=== PATIENT | female | born 1945 | race Asian ===

== ENCOUNTER 2021-07-24 12:21 | Observation (INO) | payer MEDICARE, MEDICAID ==
[~2021-07-24] VITALS: Ht 155 cm; Wt 61.0 kg
[2021-07-24] MEDS ORDERED: ONDANSETRON 4 MG/2 ML (SDV) Z0FRAN ONE (12:37)
--- NOTE | 2021-07-24 12:45 | ED Cardiac General ---
History of Present Illness General Stated Complaint: SYNCOPE Source: patient Exam Limitations: no limitations (OLYA LEON APRN) History of Present Illness Date Seen by Provider: Jul 24, 2021 Time Seen by Provider: 12:34 Initial Comments This is a 76-year-old female who presented to the ER via [facility] with syncopal episode and hypotension. States that she was at [employer] and when she went to stand up she passed out, had blurred vision, and sweating. Family thought that this might be to her blood sugar so they gave her some sugar water. Upon EMS arrival she is awake and alert, was assisted to EMS cot. Her initial blood pressure was systolic of 80's. Was given 500ml normal saline bolus in rou te, had about 300ml and at time of arrival. Daughter is present and interpreting at this time as patient does not speak Tajik. She is denying any pain. No recent illness, fever, chills, nausea, vomiting, abdominal pain. States that she was fine prior to incident. Had both Pfizer [employer]oon[employer] vaccines. Family states she stays home and avoids going out d/t COVID. This was her first outing in several months. Has lived in [place] for past seven years. No recent travel. No tobacco, alcohol, illicit drug use. (OLYA LEON APRN) Allergies and Home Medications Allergies Coded Allergies: No Known Drug Allergies (Unverified , 07/24/21) Patient Home Medication List Home Medication List Reviewed: Yes (OLYA LEON APRN) No Active Prescriptions or Reported Meds Review of Systems Review of Systems Constitutional: no symptoms reported EENTM: No Symptoms Reported Respiratory: No Symptoms Reported Cardiovascular: No Symptoms Reported Gastrointestinal: Denies Abdominal Pain; Nausea, Vomiting Genitourinary: No Symptoms Reported Musculoskeletal: no symptoms reported Skin: no symptoms reported Psychiatric/Neurological: No Symptoms Reported Endocrine: No Symptoms Reported Hematologic/Lymphatic: No Symptoms Reported (OLYA LEON APRN) Physical Exam Vital Signs Vital Signs - First Documented 07/24/21 12:25 Temp 35.8 Pulse 60 Resp 20 B/P (MAP) 62/41 (48) Pulse Ox 100 O2 Delivery Nasal Cannula O2 Flow Rate 2.00 (JOSE MIRANDA MD) Vital Signs Capillary Refill : (OLYA LEON APRN) Height, Weight, BMI Height: '" Weight: lbs. oz. kg; BMI Method: General Appearance: No Apparent Distress, WD/WN HEENT: PERRL/EOMI, TMs Normal, Normal ENT Inspection, Pharynx Normal, Moist Mucous Membranes Neck: Full Range of Motion, Normal Inspection, Non Tender, Supple Respiratory: Lungs Clear, No Accessory Muscle Use, No Respiratory Distress, Decreased Breath Sounds (bilateral bases ) Cardiovascular: Regular Rate, Rhythm, No Edema, No Gallop, Normal Peripheral Pulses Gastrointestinal: Normal Bowel Sounds, No Pulsatile Mass, Non Tender, Soft Extremity: Normal Capillary Refill, Normal Inspection, Normal Range of Motion Neurologic/Psychiatric: Alert, Oriented x3, No Motor/Sensory Deficits, Normal Mood/Affect Skin: Normal Color, Warm/Dry (OLYA LEON APRN) Focused Exam Lactate Level 07/24/21 12:45: Lactic Acid Level 3.57*H 07/24/21 15:14: Lactic Acid Level 2.05*H (JOSE MIRANDA MD) Lactic Acid Level Laboratory Tests Test 07/24/21 12:45 07/24/21 15:14 Lactic Acid Level 3.57 MMOL/L (0.50-2.00) *H 2.05 MMOL/L (0.50-2.00) *H (JOSE MIRANDA MD) Progress/Results/Core Measures Results/Orders Lab Results Laboratory Tests Test 07/24/21 12:39 07/24/21 12:43 07/24/21 12:45 07/24/21 14:00 Range/Units White Blood Count 5.1 4.3-11.0 10^3/uL Red Blood Count 2.91 L 3.80-5.11 10^6/uL Hemoglobin 9.7 L 11.5-16.0 g/dL Hematocrit 29 L 35-52 % Mean Corpuscular Volume 101 H 80-99 fL Mean Corpuscular Hemoglobin 33 25-34 pg Mean Corpuscular Hemoglobin Concent 33 32-36 g/dL Red Cell Distribution Width 13.7 10.0-14.5 % Platelet Count 121 L 130-400 10^3/uL Mean Platelet Volume 10.7 9.0-12.2 fL Immature Granulocyte % (Auto) 0 % Neutrophils (%) (Auto) 67 42-75 % Lymphocytes (%) (Auto) 21 12-44 % Monocytes (%) (Auto) 10 0-12 % Eosinophils (%) (Auto) 2 0-10 % Basophils (%) (Auto) 0 0-10 % Neutrophils # (Auto) 3.4 1.8-7.8 10^3/uL Lymphocytes # (Auto) 1.0 1.0-4.0 10^3/uL Monocytes # (Auto) 0.5 0.0-1.0 10^3/uL Eosinophils # (Auto) 0.1 0.0-0.3 10^3/uL Basophils # (Auto) 0.0 0.0-0.1 10^3/uL Immature Granulocyte # (Auto) 0.0 0.0-0.1 10^3/uL Percent Immature Platelet Fraction 4.5 0.0-7.6 % Prothrombin Time 18.2 H 12.2-14.7 SEC INR Comment 1.5 H 0.8-1.4 Activated Partial Thromboplast Time 34 24-35 SEC Sodium Level 139 135-145 MMOL/L Potassium Level 3.8 3.6-5.0 MMOL/L Chloride Level 104 98-107 MMOL/L Carbon Dioxide Level 21 21-32 MMOL/L Anion Gap 14 5-14 MMOL/L Blood Urea Nitrogen 11 7-18 MG/DL Creatinine 0.86 0.60-1.30 MG/DL Estimat Glomerular Filtration Rate 64 BUN/Creatinine Ratio 13 Glucose Level 211 H 70-105 MG/DL Calcium Level 9.0 8.5-10.1 MG/DL Corrected Calcium 9.4 8.5-10.1 MG/DL Magnesium Level 1.8 1.6-2.4 MG/DL Total Bilirubin 0.7 0.1-1.0 MG/DL Aspartate Amino Transf (AST/SGOT) 20 5-34 U/L Alanine Aminotransferase (ALT/SGPT) 15 0-55 U/L Alkaline Phosphatase 72 40-136 U/L Myoglobin 88.4 10.0-92.0 NG/ML Troponin I < 0.028 <0.028 NG/ML C-Reactive Protein High Sensitivity 0.15 0.00-0.50 MG/DL B-Type Natriuretic Peptide 235.5 H <100.0 PG/ML Total Protein 6.5 6.4-8.2 GM/DL Albumin 3.5 3.2-4.5 GM/DL Procalcitonin 0.04 <0.10 NG/ML Urine Color YELLOW Urine Clarity CLEAR Urine pH 7.5 5-9 Urine Specific Moran 1.010 L 1.016-1.022 Urine Protein NEGATIVE NEGATIVE Urine Glucose (UA) NEGATIVE NEGATIVE Urine Ketones NEGATIVE NEGATIVE Urine Nitrite NEGATIVE NEGATIVE Urine Bilirubin NEGATIVE NEGATIVE Urine Urobilinogen 0.2 < = 1.0 MG/DL Urine Leukocyte Esterase NEGATIVE NEGATIVE Urine RBC (Auto) NEGATIVE NEGATIVE Urine RBC NONE /HPF Urine WBC NONE /HPF Urine Crystals NONE /LPF Urine Bacteria NEGATIVE /HPF Urine Casts NONE /LPF Urine Mucus NEGATIVE /LPF Urine Culture Indicated CULTURE PENDING Lactic Acid Level 3.57 *H 0.50-2.00 MMOL/L SARS-CoV-2 RNA (RT-PCR) Not Detected Not Detecte Test 07/24/21 15:14 Range/Units Lactic Acid Level 2.05 *H 0.50-2.00 MMOL/L Troponin I < 0.028 <0.028 NG/ML (JOSE MIRANDA MD) Micro Results Microbiology 07/24/21 Blood Culture - Preliminary, Resulted No growth 07/24/21 Blood Culture - Preliminary, Resulted No growth 07/24/21 Urine Culture - Preliminary, Resulted Probable Enterococcus Species (JOSE MIRANDA MD) Vital Signs/I&O 07/24/21 07/24/21 12:25 12:30 Temp 35.8 Pulse 60 Resp 20 B/P (MAP) 62/41 (48) Pulse Ox 100 100 O2 Delivery Nasal Cannula Nasal Cannula O2 Flow Rate 2.00 2.00 (JOSE MIRANDA MD) Progress Progress Note : Progress Note Family states this patient was out for a family gathering for her birthday celebration today. She was fine prior to incident occurring. States that she does take Metformin intermittently and was told by her primary care doctor to go ahead and take today as they planned on having a heavy carb dinner. She took her Metformin this morning. Upon arrival initiated liter of IV fluids and completed remaining 200ml of her initial 500ml bolus per EMS. She began vomiting and was given Zofran 8 mg IV push. Initial EKG neg for ST elevation. Paced rhythm. Initiated cardiac and sepsis workup. Case reviewed with Dr. Harrington, will admit observation, provide IVF, and repeat labs in am. Plan reviewed with patient and family. They are agreeable with plan. (OLYA LEON APRN) Initial ECG Impression Date: Jul 24, 2021 Initial ECG Impression Time: 12:34 Initial ECG Rate: 76 Initial ECG Intervals Atrial-paced, MA-280, QTc-521, no axis deviation. Initial ECG Comparisson: No Previous ECG Available (OLYA LEON APRN) Diagnostic Imaging Diagonstic Imaging: Xray Comments [facility] [place] [place] [facility] [id number] PT STATUS: REG ER : 1945 PHYSICIAN: OLYA LEON APRN ADMIT DATE: 07/24/21/ER Signed Date of Exam:07/24/21 CHEST 1 VIEW, AP/PA ONLY EXAMINATION: Chest 1 view HISTORY: Chest pain COMPARISON: None available. FINDINGS: Heart size is mildly enlarged. Left-sided cardiac device is present. There are low lung volumes with mild patchy interstitial opacities within both lungs. No pleural effusion or pneumothorax. The osseous structures are intact. IMPRESSION: 1. Low lung volumes with patchy interstitial opacities throughout the lungs which can be seen with pulmonary edema or atypical infection. Dictated by: Dictated on workstation # [id number] Dict: 07/24/21 1340 Trans: 07/24/21 1406 CVB [id number] Interpreted by: MEME FRANZ DO Electronically signed by: MEME FRANZ DO 07/24/211405 Reviewed: Reviewed by Me Comments [facility] [place], [place] [facility] REC#: [id number] PT STATUS: REG ER : 1945 PHYSICIAN: OLYA LEON APRN ADMIT DATE: 07/24/21/ER Signed Date of Exam:07/24/21 CT ABDOMEN/PELVIS W EXAMINATION: CT abdomen and pelvis with intravenous contrast. TECHNIQUE: Multiple contiguous axial images were obtained through the abdomen and pelvis after the uneventful administration of intravenous contrast. All CT scans use one or more of the following dose optimizing techniques: automated exposure control, MA and/or KvP adjustment based on patient size and exam type or iterative reconstruction. HISTORY: Vomiting, abdominal pain, hypotension COMPARISON: None available. FINDINGS: Lung bases: Patchy groundglass opacities are seen within the lung bases. Trace bilateral pleural effusions. Solid organs: The liver is normal without focal lesion. The gallbladder is normal. There is no biliary ductal dilation. Pancreas is normal. There are innumerable hypoattenuating lesions seen throughout the spleen. Adrenal glands are normal. The kidneys are normal without hydronephrosis. Bowel: The stomach and small bowel are normal without obstruction. There is a moderate amount of stool seen throughout the colon. No findings of acute appendicitis. Peritoneum: There is mild abdominal and pelvic ascites. No suspicious lymphadenopathy. Vasculature: Calcification of the aorta without aneurysm. Musculoskeletal: Degenerative changes of the spine without suspicious osseous lesion or compression fracture. Pelvis: The uterus and adnexa are normal. A Garcia catheter is present within the urinary bladder. IMPRESSION: 1. No acute abnormality in the abdomen or pelvis. 2. Innumerable indeterminate hypoattenuating lesions seen throughout the spleen. These are indeterminate but differential consideration includes infectious process, sarcoidosis, or neoplastic process such as lymphoma or metastases. 3. Patchy groundglass opacities in the lung bases which can be seen with atypical infection. 4. Mild ascites. Dictated by: Dictated on workstation # [id number] Dict: 07/24/21 1341 Trans: 07/24/21 1406 [facility] [id number] Interpreted by: MEME FRANZ DO Electronically signed by: MEME FRANZ DO 07/24/21 1406 Reviewed: Reviewed by Me (OLYA LEON APRN) Departure Impression Primary Impression: Anemia Additional Impressions: Hypotension Splenic lesion Atypical pneumonia Disposition: ADMITTED INPATIENT Condition: Stable Admissions Decision to Admit Reason: Admit from ER (General) Decision to Admit/Date: Jul 24, 2021 Time/Decision to Admit Time: 14:00 (OLYA LEON APRN) Departure-Patient Inst. Referrals: UNKNOWN (PCP/Family) Primary Care Physician Scripts No Active Prescriptions or Reported Meds ATTENDING PHYSICIAN NOTE: I was physically present as attending physician in the emergency department during the care of this patient, but I was not directly involved in the decision making or delivery of care for this patient. (JOSE MIRANDA MD) OLYA LEON APRN Jul 24, 2021 12:45 JOSE MIRANDA MD Jul 26, 2021 06:18
[2021-07-24 12:47] LABS: BASOPHILS % (AUTO) 0 % (0-10); MEAN CORPUSCULAR VOLUME 101 fL (80-99)
[2021-07-24 12:49] LABS: EOSINOPHILS # (AUTO) 0.1 10^3/uL (0.0-0.3); EOSINOPHILS % (AUTO) 2 % (0-10); HEMATOCRIT 29 % (35-52); HEMOGLOBIN 9.7 g/dL (11.5-16.0); LYMPHOCYTES % (AUTO) 21 % (12-44); MEAN CORPUSCULAR HEMOGLOBIN 33 pg (25-34); MEAN CORPUSCULAR HGB CONC 33 g/dL (32-36); MEAN PLATELET VOLUME 10.7 fL (9.0-12.2); MONOCYTES # (AUTO) 0.5 10^3/uL (0.0-1.0); MONOCYTES % (AUTO) 10 % (0-12); NEUTROPHILS # (AUTO) 3.4 10^3/uL (1.8-7.8); NEUTROPHILS % (AUTO) 67 % (42-75); PLATELET COUNT 121 10^3/uL (130-400); WHITE BLOOD COUNT 5.1 10^3/uL (4.3-11.0)
[2021-07-24 12:56] LABS: ALBUMIN 3.5 GM/DL (3.2-4.5); POTASSIUM 3.8 MMOL/L (3.6-5.0)
[2021-07-24 12:57] LABS: INR 1.5 (0.8-1.4); PROTHROMBIN TIME PATIENT 18.2 SEC (12.2-14.7)
[2021-07-24 12:58] LABS: TOTAL PROTEIN 6.5 GM/DL (6.4-8.2)
[2021-07-24 12:58] LABS: BILIRUBIN,URINE NEGATIVE (NEGATIVE); CLARITY,URINE CLEAR; COLOR,URINE YELLOW; GLUCOSE, URINE (UA) NEGATIVE (NEGATIVE); KETONES,URINE NEGATIVE (NEGATIVE); LEUKOCYTE ESTERASE ,URINE NEGATIVE (NEGATIVE); NITRITE,URINE NEGATIVE (NEGATIVE); PH,URINE 7.5 (5-9); PROTEIN,URINE NEGATIVE (NEGATIVE)
[2021-07-24 13:00] LABS: BILIRUBIN,TOTAL 0.7 MG/DL (0.1-1.0)
[2021-07-24] MEDS ORDERED: ONDANSETRON 4 MG/2 ML (SDV) Z0FRAN IVP ONE (13:00)
[2021-07-24] MEDS ORDERED: NS IV 1000 ML 1,000 ML IV ONE (13:00)
[2021-07-24 13:01] LABS: BACTERIA,URINE NEGATIVE /HPF
[2021-07-24 13:02] LABS: CREATININE SERUM 0.86 MG/DL (0.60-1.30)
[2021-07-24 13:05] LABS: MAGNESIUM 1.8 MG/DL (1.6-2.4)
[2021-07-24] MEDS ORDERED: HOLD METFORMIN - RECEIVED CONTRAST 20 ML VIAL IV SCH (13:15)
[2021-07-24] MEDS ORDERED: NS 100 ML (IVPB) BAG IV ONE (13:15)
[2021-07-24] MEDS ORDERED: IOHEXOL 350 MG/ML 100 ML (OMNIPAQUE 350) VIAL IV ONE (13:15)
--- NOTE | 2021-07-24 13:44 | Diagnostic Imaging Report ---
EXAMINATION: Chest 1 view HISTORY: Chest pain COMPARISON: None available. FINDINGS: Heart size is mildly enlarged. Left-sided cardiac device is present. There are low lung volumes with mild patchy interstitial opacities within both lungs. No pleural effusion or pneumothorax. The osseous structures are intact. IMPRESSION: 1. Low lung volumes with patchy interstitial opacities throughout the lungs which can be seen with pulmonary edema or atypical infection. Dictated by: Dictated on workstation # [id number]
--- NOTE | 2021-07-24 13:52 | Diagnostic Imaging Report ---
EXAMINATION: CT abdomen and pelvis with intravenous contrast. TECHNIQUE: Multiple contiguous axial images were obtained through the abdomen and pelvis after the uneventful administration of intravenous contrast. All CT scans use one or more of the following dose optimizing techniques: automated exposure control, MA and/or KvP adjustment based on patient size and exam type or iterative reconstruction. HISTORY: Vomiting, abdominal pain, hypotension COMPARISON: None available. FINDINGS: Lung bases: Patchy groundglass opacities are seen within the lung bases. Trace bilateral pleural effusions. Solid organs: The liver is normal without focal lesion. The gallbladder is normal. There is no biliary ductal dilation. Pancreas is normal. There are innumerable hypoattenuating lesions seen throughout the spleen. Adrenal glands are normal. The kidneys are normal without hydronephrosis. Bowel: The stomach and small bowel are normal without obstruction. There is a moderate amount of stool seen throughout the colon. No findings of acute appendicitis. Peritoneum: There is mild abdominal and pelvic ascites. No suspicious lymphadenopathy. Vasculature: Calcification of the aorta without aneurysm. Musculoskeletal: Degenerative changes of the spine without suspicious osseous lesion or compression fracture. Pelvis: The uterus and adnexa are normal. A Garcia catheter is present within the urinary bladder. IMPRESSION: 1. No acute abnormality in the abdomen or pelvis. 2. Innumerable indeterminate hypoattenuating lesions seen throughout the spleen. These are indeterminate but differential consideration includes infectious process, sarcoidosis, or neoplastic process such as lymphoma or metastases. 3. Patchy groundglass opacities in the lung bases which can be seen with atypical infection. 4. Mild ascites. Dictated by: Dictated on workstation # [id number]
[2021-07-24 16:00] VITALS: BP 144/64
[2021-07-24] MEDS ORDERED: RT-ALBUTEROL SULF 2.5 MG/3 ML PRE-MIX VIAL INH PRN (16:45)
[2021-07-24] MEDS: ACETAMINOPHEN 325 MG TABLET PO PRN ×2 (16:51→17:21)
[2021-07-24] MEDS ORDERED: NS IV 1000 ML 1,000 ML IV SCH (17:00)
[2021-07-24 20:00] VITALS: BP 119/57
[2021-07-24] MEDS ORDERED: ONDANSETRON 4 MG/2 ML (SDV) Z0FRAN IVP PRN (20:00)
[2021-07-24] MEDS: RT-ALBUTEROL SULF 2.5 MG/3 ML PRE-MIX VIAL INH SCH (21:00)
[2021-07-24 23:30] VITALS: BP 143/73
[2021-07-25 04:00] VITALS: BP 151/70
[2021-07-25 07:02] LABS: POTASSIUM 3.9 MMOL/L (3.6-5.0)
[2021-07-25 07:03] LABS: CALCIUM 8.5 MG/DL (8.5-10.1)
[2021-07-25 07:08] LABS: CREATININE SERUM 0.7 MG/DL (0.60-1.30)
[2021-07-25 07:47] LABS: BASOPHILS % (AUTO) 0 % (0-10); MEAN CORPUSCULAR HEMOGLOBIN 34 pg (25-34); MEAN CORPUSCULAR HGB CONC 34 g/dL (32-36); MEAN CORPUSCULAR VOLUME 100 fL (80-99); MONOCYTES # (AUTO) 0.7 10^3/uL (0.0-1.0)
[2021-07-25 07:49] LABS: EOSINOPHILS % (AUTO) 0 % (0-10); HEMATOCRIT 23 % (35-52); HEMOGLOBIN 7.7 g/dL (11.5-16.0); LYMPHOCYTES # (AUTO) 0.9 10^3/uL (1.0-4.0); LYMPHOCYTES % (AUTO) 11 % (12-44); MEAN PLATELET VOLUME 10.6 fL (9.0-12.2); MONOCYTES % (AUTO) 9 % (0-12); NEUTROPHILS # (AUTO) 6.2 10^3/uL (1.8-7.8); NEUTROPHILS % (AUTO) 78 % (42-75); PLATELET COUNT 105 10^3/uL (130-400); WHITE BLOOD COUNT 7.9 10^3/uL (4.3-11.0)
[2021-07-25 08:00] VITALS: BP 141/63
[2021-07-25] MEDS: RT-ALBUTEROL SULF 2.5 MG/3 ML PRE-MIX VIAL INH SCH (08:54)
[2021-07-25 12:00] VITALS: BP 153/70
--- NOTE | 2021-07-25 13:18 | Discharge Summary ---
Discharge Summary Hospital Course Problems/Dx: (1) Orthostatic hypotension (2) Anemia Status: Acute (3) Splenic lesion Status: Acute (4) Asymptomatic bacteriuria Status: Acute Hospital Course Date of Admission: Jul 24, 2021 at 15:25 Admission Diagnosis : Orthostatic hypotension Family Physician/Provider: Jonathan Rose MD Date of Discharge: 07/25/21 Discharge Diagnosis: Orthostatic hypotension Hospital Course: Rico Pichardo is a 76 year old female with PMH HTN, HLD, AFib, SSS s/p pacemaker, who presented with lightheadedness and dizziness and was admitted with orthostatic hypotension. She was given IV fluids and her symptoms resolved. Her course was complicated by anemia. Her hemoglobin did decrease with IV fluids and was thought to be mainly dilutional. There was no evidence for active bleeding. She was also found to have splenic lesions on CT. She should have a follow up H/H in a couple days. She needs to follow up with her PCP for outpatient workup of her splenic lesions. She was offered home health care but refused at this time. She was discharged home in stable condition. Labs and Pending Lab Test: Laboratory Tests 07/24/21 14:00: SARS-CoV-2 RNA (RT-PCR) Not Detected 07/24/21 15:14: Lactic Acid Level 2.05*H, Troponin I < 0.028 07/24/21 17:25: Lactic Acid Level 1.93 07/24/21 23:21: Glucometer 101 07/25/21 06:06: White Blood Count 7.9, Red Blood Count 2.29L, Hemoglobin 7.7#L, Hematocrit 23L, Mean Corpuscular Volume 100H, Mean Corpuscular Hemoglobin 34, Mean Corpuscular Hemoglobin Concent 34, Red Cell Distribution Width 14.0, Platelet Count 105L, Mean Platelet Volume 10.6, Immature Granulocyte % (Auto) 1, Neutrophils (%) (Auto) 78H, Lymphocytes (%) (Auto) 11L, Monocytes (%) (Auto) 9, Eosinophils (%) (Auto) 0, Basophils (%) (Auto) 0, Neutrophils # (Auto) 6.2, Lymphocytes # (Auto) 0.9L, Monocytes # (Auto) 0.7, Eosinophils # (Auto) 0.0, Basophils # (Auto) 0.0, Immature Granulocyte # (Auto) 0.1, Percent Immature Platelet Fraction 4.7, Sodium Level 137, Potassium Level 3.9, Chloride Level 107, Carbon Dioxide Level 20L, Anion Gap 10, Blood Urea Nitrogen 11, Creatinine 0.70, Estimat Glomerular Filtration Rate 82, BUN/Creatinine Ratio 16, Glucose Level 114H, Calcium Level 8.5 Microbiology 07/24/21 Urine Culture - Preliminary, Resulted Probable Enterococcus Species Assessment/Pt Instructions Take medications as prescribed. Follow up with your PCP. You should have labs drawn in 2-3 days to monitor your blood counts. Return with worsening dizziness or if you feel like you are getting worse. Discharge Planning: <30 minutes discharge planning Discharge Instructions Discharge Diet: No Restrictions Activity as Tolerated: Yes Discharge Physical Examination Vital Signs Vital Signs Date Time Temp Pulse Resp B/P (MAP) Pulse Ox O2 Delivery O2 Flow Rate FiO2 07/25/21 08:55 92 Room Air 07/25/21 08:00 37.0 62 18 141/63 (89) 07/24/21 16:23 28 07/24/21 12:30 2.00 General Appearance: No Apparent Distress, WD/WN HEENT: PERRL/EOMI, Pharynx Normal Respiratory: Lungs Clear, Normal Breath Sounds, No Respiratory Distress Cardiovascular: Regular Rate, Rhythm, No Edema, No Murmur Gastrointestinal: Normal Bowel Sounds, Soft, Tenderness Extremity: Normal Inspection, Non Tender, No Pedal Edema Skin: Normal Color, Warm/Dry Neurologic/Psychiatric: Alert, No Motor/Sensory Deficits, Normal Mood/Affect Allergies: Coded Allergies: No Known Drug Allergies (Unverified , 07/24/21) Discharge Summary Date of Admission Jul 24, 2021 at 15:25 Date of Discharge Discharge Date: Jul 25, 2021 Discharge Time: 13:17 Admission Diagnosis Orthostatic hypotension Discharge Diagnosis (1) Orthostatic hypotension (2) Anemia Status: Acute (3) Splenic lesion Status: Acute (4) Asymptomatic bacteriuria Status: Acute AMY ARANGO MD Jul 25, 2021 13:17
[2021-07-25 14:47] VITALS: BP 153/70
== END 2021-07-25 14:47 | disposition home or self-care (01) ==
LOC: ER 12:24 → UNDOADMOB 15:25 → 4TH 15:25 → UNDODISOB 07-25 14:30
PROVIDERS: ADMIT Family Medicine; ATTEND Family Medicine
DX: I95.1 Orthostatic hypotension (principal); D64.9 Anemia, unspecified; D73.89 Other diseases of spleen; J18.8 Other pneumonia, unspecified organism; R82.71 Bacteriuria
CPT/HCPCS: 51702; 71045; 74177; 80048; 80053; 81000; 82947; 83605; 83735; 83874; 83880; 84145; 84484; 85025 ×2; 85610; 85730; 86141; 87040; 87077; 87088; 87186; 87636; 93005; 93041; 94640 ×2; 94664; 94760; 96361; 96374; 99285; G0378; 36415